=== PATIENT | male | born 2000 | race African-American/Black ===

== ENCOUNTER 2023-11-13 16:23 | Emergency (ER) | payer OTHER ==
--- NOTE | 2023-11-13 16:36 | ED Physician Documentation ---
PD HPI HEADACHE - Stated complaint Stated Complaint: EVANS/NAUSEA - Chief complaint Chief Complaint: Neuro - History obtained from History obtained from: Patient - History of Present Illness Timing - onset: Yesterday Timing - onset during: Rest Timing - details: Gradual onset, Still present Worst headache ever?: Worst headache ever? (yes) Location: Front Quality: Throbbing, Aching, Tightness Associated symptoms: Nausea, Vomiting (today), Vision changes (mild blurred vision left eye initially with onset EVANS, not currenlty.). No: Fever, Stiff neck, Weakness, Numbness Improved by: Dark room Worsened by: Light Contributing factors: No: Anticoagulated, Recent illness, Trauma Similar symptoms before: Has not had sx before Recently seen: Not recently seen Review of Systems Constitutional: denies: Fever, Chills Nose: denies: Rhinorrhea / runny nose, Congestion Throat: denies: Sore throat Respiratory: denies: Cough GI: reports: Nausea, Vomiting. denies: Diarrhea Skin: denies: Rash, Lesions Neurologic: reports: Headache. denies: Focal weakness, Numbness, Altered mental status, Head injury PD PAST MEDICAL HISTORY - Past Medical History Past Medical History: No - Past Surgical History Past Surgical History: No - Present Medications Home Medications: Ambulatory Orders Medication Instructions Recorded Confirmed No Known Home Medications 11/13/23 11/13/23 - Allergies Allergies/Adverse Reactions: Allergies Allergy/AdvReac Type Severity Reaction Status Date / Time No Known Drug Allergies Allergy Verified 11/13/23 16:33 - Social History Does the pt smoke?: No Smoking Status: Never smoker Does the pt drink ETOH?: Yes Does the pt have substance abuse?: No Substance Use and Type: Marijuana - Immunizations Immunizations are current?: No PD ED PE NORMAL - Vitals Vital signs reviewed: Yes - General General: Alert and oriented X 3, Well developed/nourished, Other (He appears in moderate to severe discomfort related to the headache. He is conversant. 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, No motor deficit, No sensory deficit, Normal speech Eye Opening: Spontaneous Motor: Obeys Commands Verbal: Oriented GCS Score: 15 Results - Vitals Vitals: Vital Signs - 24 hr 11/13/23 11/13/23 11/13/23 16:30 17:36 17:38 Temperature 36.7 C Heart Rate 95 88 Respiratory 16 16 Rate Blood Pressure 129/70 103/67 O2 Saturation 100 99 11/13/23 18:02 Temperature Heart Rate 116 H Respiratory 16 Rate Blood Pressure 118/85 H O2 Saturation 99 Oxygen O2 Source Room air - Labs Labs: Laboratory Tests 11/13/23 11/13/23 16:51 16:51 WBC 8.6 RBC 4.95 Hgb 14.3 Hct 43.9 MCV 88.7 MCH 28.9 MCHC 32.6 RDW 12.7 Plt Count 319 MPV 10.2 Neut # (Auto) 6.4 Lymph # (Auto) 1.5 [place] # (Auto) 0.3 Eos # (Auto) 0.3 Baso # (Auto) 0.1 Absolute Nucleated RBC 0.00 Nucleated RBC % 0.0 Sodium 139 Potassium 3.8 Chloride 105 Carbon Dioxide 28 Anion Gap 6.0 BUN 7 Creatinine 0.7 Estimated GFR (MDRD) 173 Glucose 97 Calcium 9.9 Magnesium 1.7 Total Bilirubin 0.3 AST 13 ALT 11 Alkaline Phosphatase 64 Total Protein 7.5 Albumin 4.5 Globulin 3.0 Albumin/Globulin Ratio 1.5 Lipase 11 PD Medical Decision Making - ED course Complexity details: considered differential, d/w patient ED course: The patient with a nontraumatic onset of headache yesterday associated with some visual disturbance and nausea initially and progressive headache into today. Nausea and vomiting started overnight into this morning with still nausea and occasional vomiting. No focal deficits. No fever chills swollen glands or cold symptoms. He denies any prior similar episodes to this. He has a pressure type feeling in the frontal aspect of the head. He had not been having any exertionally related headaches or other symptoms prior to this. It does sound likely to be functional headache though no history of such in the past. It was not an abrupt nor thunderclap type headache so does not sound vascular per se. However cannot exclude mass effect or edema. Shared decision with the patient was to potentially empirically treat as migraine or to do some testing as a new onset of migraines. Patient opted for scan at this time which is reasonable. We will do basic blood test of a chemistry panel and CBC and a CT scan. Concurrently he is to get IV fluids along with Compazine and Toradol targeted towards a functional headache and see how he does. Departure - Departure Disposition: 01 Home, Self Care Clinical Impression: Acute headache, Migraine Condition: Stable Record reviewed to determine appropriate education?: Yes Instructions: ED Headache Migraine Comments: Your blood count and basic chemistry panel including kidney function, electrolytes, blood sugar appear normal. Your CT scan does not show any acute obvious cause for headache. This does sound like a functional headache such as a migraine. Your age would be a common time for new onset of migraines. These can be occasional "worn off" headaches and may not be the start of a pattern. At this point your headache seems to be improved. Home and rest and stay well-hydrated. Tylenol or ibuprofen if needed for residual headache or pains. See if you develop any similar headaches in the near future. If you develop repeated ones or any pattern to it then there can be medications used specifically for migraines. Fairly commonly would be not having a repeat ones for quite a while if at all. Forms: PCP List
[2023-11-13 16:56] LABS: BASOPHILS # (AUTO) 0.1 10^3/uL (0.0-0.1); BASOPHILS % (AUTO) 1.3 %; EOSINOPHILS # (AUTO) 0.3 10^3/uL (0.0-0.7); EOSINOPHILS % (AUTO) 3.9 %; HCT - HEMATOCRIT 43.9 % (42.0-52.0); HGB - HEMOGLOBIN 14.3 g/dL (14.0-18.0); LYMPHOCYTES # (AUTO) 1.5 10^3/uL (1.5-3.5); LYMPHOCYTES % (AUTO) 17.1 %; MEAN CORPUSCULAR HEMOGLOBIN 28.9 pg (27.0-31.0); MEAN CORPUSCULAR HGB CONC 32.6 g/dL (32.0-36.0); MEAN CORPUSCULAR VOLUME 88.7 fL (80.0-94.0); MEAN PLATELET VOLUME 10.2 fL (7.4-11.4); MONOCYTES # (AUTO) 0.3 10^3/uL (0.0-1.0); MONOCYTES % (AUTO) 3.2 %; NEUTROPHILS # (AUTO) 6.4 10^3/uL (1.5-6.6); NEUTROPHILS % (AUTO) 74.3 %; PLT - PLATELET COUNT 319 10^3/uL (130-450); RED BLOOD COUNT 4.95 10^6/uL (4.70-6.10); RED CELL DISTRIBUTION WIDTH 12.7 % (12.0-15.0); WHITE BLOOD COUNT 8.6 x10^3/uL (4.8-10.8)
[2023-11-13 17:07] LABS: MAGNESIUM 1.7 mg/dL (1.7-2.3)
[2023-11-13] MEDS: KETOROLAC 15 MG/ML VIAL IVP STA (17:12)
[2023-11-13] MEDS: PROCHLORPERAZINE 10 MG/2 ML VIAL IVP STA (17:12)
[2023-11-13 17:13] LABS: ALBUMIN 4.5 g/dL (3.2-5.5); ALBUMIN/GLOBULIN RATIO 1.5 (1.0-2.2); BILIRUBIN,TOTAL 0.3 mg/dL (0.2-1.0); CALCIUM 9.9 mg/dL (8.5-10.3); CREATININE 0.7 mg/dL (0.6-1.3); POTASSIUM 3.8 mmol/L (3.5-4.5); TOTAL PROTEIN 7.5 g/dL (6.4-8.9)
[2023-11-13] MEDS: SODIUM CHLORIDE 0.9% 1,000 ML IV STA ×2 (17:13)
--- NOTE | 2023-11-13 17:35 | CT Report ---
PROCEDURE: Head WO INDICATIONS: EVANS since yesterday, increasing TECHNIQUE: Noncontrast 4.5 mm thick angled axial sections acquired from the foramen magnum to the vertex. For r adiation dose reduction, the following was used: automated exposure control, adjustment of mA and/or kV according to patient size. COMPARISON: None. FINDINGS: Image quality: Excellent. CSF spaces: Basal cisterns are patent. No extra-axial fluid collections. Ventricles are normal in size and shape. Brain: No midline shift. No intracranial masses or hemorrhage. Pearson-white matter interface is norm al. Skull and face: Calvarium and visualized facial bones are intact, without suspicious lesions. Sinuses: Visualized sinuses and mastoids are clear. IMPRESSION: No cause for patient's symptoms is identified. No acute intracranial pathology. Reviewed by: Mikal Benjamin MD on 11/13/2023 5:34 PM PDT Approved by: Mikal Benjamin MD on 11/13/2023 5:34 PM PDT Station ID: [id number]
[2023-11-13 17:39] VITALS: O2SAT 99
[2023-11-13] MEDS: HYDROmorphone 0.5 MG/0.5 ML SYRINGE IVP STA (17:56)
[2023-11-13] MEDS: DEXAMETHASONE 10 MG/ML VIAL IVP STA (17:56)
[2023-11-13 18:08] VITALS: BP 118/85
== END 2023-11-13 18:34 | disposition home or self-care (01) ==
LOC: ED 16:23
DX: G43.909 Migraine, unspecified, not intractable, without status migrainosus (principal)
CPT/HCPCS: 36415; 70450; 80053; 83690; 83735; 85025; 96374; 96375; 99284; J1170